=== PATIENT | female | born 2000 ===

== ENCOUNTER 2020-03-29 10:25 | Inpatient (IN) | payer BC ==
[~2020-03-29 10:25] MED LIST: Citric Acid/Sodium Citrate Solution 30 ML Cup PO ONE; Oxytocin/0.9 % Sodium Chloride 30 UNIT/500 ML BAG IV SCH; Sodium Chloride 0.9% 10 ML SDV IV PRN; Sodium Chloride 0.9% 10 ML Syringe FLUSH PRN; Sodium Chloride 0.9% 2.5 ML Syringe FLUSH PRN; ceFAZolin 2 GM in Premix Bag 1 BAG IV ONE
[2020-03-29] MEDS ORDERED: Oxytocin 10 Units/1 ML SDV ONE (10:31)
[2020-03-29] MEDS ORDERED: Ondansetron 4 MG/2 ML SDV ONE (10:31)
[2020-03-29] MEDS ORDERED: ceFAZolin/Dextrose,Iso-Osmotic 2 GM/50 ML Duplex Bag IV ONE (10:37)
[2020-03-29] MEDS: Lactated Ringers 1,000 ML IV SCH ×2 (10:48→12:21)
--- NOTE | 2020-03-29 11:06 | PCM.PREANE ---
Preanesthetic Assessment - Anesthesia/Transfusion/Family Hx Anesthesia History: Prior Anesthesia Without Reaction Family History of Anesthesia Reaction: No Transfusion History: No Prior Transfusion(s) - Review of Systems General: No Symptoms Pulmonary: No Symptoms Cardiovascular: No Symptoms Gastrointestinal: No Symptoms Neurological: No Symptoms Other: Reports: None - Physical Assessment NPO Status Date: 03/29/20 NPO Status Time: 08:30 (cl only) Height: 5 ft 8 in Weight: 83.915 kg ASA Class: 2 Mental Status: Alert & Oriented x3 Airway Class: Mallampati = 2 Dentition: Reports: Normal Dentition ROM/Head Extension: Full Lungs: Clear to Auscultation, Normal Respiratory Effort Cardiovascular: Regular Rate, Regular Rhythm - Lab Values: Laboratory Last Values WBC 7.18 K/uL (4.0-11.0) 03/28/20 09:23 RBC 4.29 M/uL (4.30-5.90) L 03/28/20 09:23 Hgb 11.4 g/dL (12.0-16.0) L 03/28/20 09:23 Hct 35.6 % (36.0-46.0) L 03/28/20 09:23 MCV 83.0 fL (80.0-98.0) 03/28/20 09:23 MCH 26.6 pg (27.0-32.0) L 03/28/20 09:23 MCHC 32.0 g/dL (31.0-37.0) 03/28/20 09:23 RDW Std Deviation 42.0 fl (28.0-62.0) 03/28/20 09:23 RDW Coeff of Jackelin 14 % (11.0-15.0) 03/28/20 09:23 Plt Count 210 K/uL (150-400) 03/28/20 09:23 MPV 10.80 fL (7.40-12.00) 03/28/20 09:23 Nucleated RBC % 0.0 /100WBC 03/28/20 09:23 Nucleated RBCs # 0 K/uL 03/28/20 09:23 Blood Type O POSITIVE 03/28/20 09:23 Antibody Screen NEGATIVE 03/28/20 09:23 - Allergies Allergies/Adverse Reactions: Allergies Allergy/AdvReac Type Severity Reaction Status Date / Time No Known Allergies Allergy Verified 03/27/20 12:53 - Blood Blood Available: No - Anesthesia Plan Pre-Op Medication Ordered: None - Acknowledgements Anesthesia Type Planned: Spinal Pt an Appropriate Candidate for the Planned Anesthesia: Yes Alternatives and Risks of Anesthesia Discussed w Pt/Guardian: Yes Pt/Guardian Understands and Agrees with Anesthesia Plan: Yes PreAnesthesia Questionnaire HEENT History: Reports: None Cardiovascular History: Reports: None Respiratory History: Reports: None Gastrointestinal History: Reports: Other (See Below) Other Gastrointestinal History: heartburn with Genitourinary History: Reports: None 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: Musculoskeletal History: Reports: None Neurological History: Reports: None Psychiatric History: Reports: None Endocrine/Metabolic History: Reports: None Hematologic History: Reports: None Immunologic History: Reports: None Oncologic (Cancer) History: Reports: None Dermatologic History: Reports: None - Past Surgical History Head Surgeries/Procedures: Reports: None HEENT Surgical History: Reports: None Cardiovascular Surgical History: Reports: None Respiratory Surgical History: Reports: None GI Surgical History: Reports: None Female Surgical History: Reports: Section Endocrine Surgical History: Reports: None Neurological Surgical History: Reports: None Musculoskeletal Surgical History: Reports: None Oncologic Surgical History: Reports: None Dermatological Surgical History: Reports: None - SUBSTANCE USE Smoking Status *Q: Never Smoker Recreational Drug Use History: No - HOME MEDS Home Medications: Home Meds Acetaminophen [Tylenol] 2 tab PO ASDIRECTED PRN 03/27/20 [History] - CURRENT (IN HOUSE) MEDS Current Meds: Current Medications Oxytocin/Sodium Chloride (Oxytocin 30 Unit/500 Ml-Ns) 30 unit in 500 mls @ 250 mls/hr IV TITRATE ILEANA Lactated Ringer's (Ringers, Lactated) 1,000 mls @ 500 mls/hr IV BOLUS ILEANA Sodium Chloride (Saline Flush) 10 ml FLUSH ASDIRECTED PRN PRN Reason: Keep Vein Open Sodium Chloride (Saline Flush) 2.5 ml FLUSH ASDIRECTED PRN PRN Reason: Keep Vein Open Sodium Chloride (Normal Saline) 10 ml IV ASDIRECTED PRN PRN Reason: IV Use Discontinued Medications Cefazolin Sodium/Dextrose (Ancef) Confirm Administered Dose 2 gm IV .STK-MED ONE Stop: 03/29/20 10:38 Citric Acid/Sodium Citrate (Bicitra Solution) 30 ml PO ONETIME ONE Stop: 03/28/20 08:35 Cefazolin Sodium/Dextrose 2 gm (/ Premix) 50 mls @ 100 mls/hr IV ONETIME ONE Stop: 03/28/20 09:03 Ondansetron HCl (Zofran) Confirm Administered Dose 4 mg .ROUTE .STK-MED ONE Stop: 03/29/20 10:32 Oxytocin (Pitocin) Confirm Administered Dose 20 unit .ROUTE .STK-MED ONE Stop: 03/29/20 10:32
[2020-03-29] MEDS ORDERED: Morphine PF 10 MG/10 ML SDV ONE (12:43)
--- NOTE | 2020-03-29 12:46 | PCM.LDHP ---
L&D History of Present Illness - General Date of Service: 03/29/20 Admit Problem/Dx: Patient Status Order with Admit Dx/Problem 03/28/20 08:34 Patient Status [ADT] Routine Admission Diagnosis/Problem Admission Diagnosis/Problem 03/29/20 12:41 Ileana is a 20 yo at 39.4 weeks (SANDRO 04/01/2021) that presents today for repeat section due to history of C/S due to failure to progress. O pos, RI, GBS neg. No other significant medical history. Patient has no complaints, comments, or concerns today. Pre-operative clearance completed 1 day ago in clinic with Dr. Ahumada. Operative and blood product consents signed and in chart. NKDA. Source of Information: Patient History Limitations: Reports: No Limitations - Related Data Allergies/Adverse Reactions: Allergies Allergy/AdvReac Type Severity Reaction Status Date / Time No Known Allergies Allergy Verified 03/27/20 12:53 Home Medications: Home Meds Acetaminophen [Tylenol] 2 tab PO ASDIRECTED PRN 03/27/20 [History] Past Medical History HEENT History: Reports: None Cardiovascular History: Reports: None Respiratory History: Reports: None Gastrointestinal History: Reports: Other (See Below) Other Gastrointestinal History: heartburn with Genitourinary History: Reports: None CONSULTANT INTERN History: Reports: , Other (See Below) (History of primary C/S due to FTP) : 2 Para: 1 LMP (Approximate): Musculoskeletal History: Reports: None Neurological History: Reports: None Psychiatric History: Reports: None Endocrine/Metabolic History: Reports: None Hematologic History: Reports: None Immunologic History: Reports: None Oncologic (Cancer) History: Reports: None Dermatologic History: Reports: None - Past Surgical History Head Surgeries/Procedures: Reports: None HEENT Surgical History: Reports: None Cardiovascular Surgical History: Reports: None Respiratory Surgical History: Reports: None GI Surgical History: Reports: None Female Surgical History: Reports: Section Endocrine Surgical History: Reports: None Neurological Surgical History: Reports: None Musculoskeletal Surgical History: Reports: None Oncologic Surgical History: Reports: None Dermatological Surgical History: Reports: None Social & Family History - Family History Family Medical History: Noncontributory - Tobacco Use Smoking Status *Q: Never Smoker Second Hand Smoke Exposure: No - Alcohol Use Alcohol Use History: No - Recreational Drug Use Recreational Drug Use: No Drug Use in Last 12 Months: No H&P Review of Systems - Review of Systems: Review Of Systems: Comprehensive ROS is negative, except as noted in HPI. General: Reports: No Symptoms HEENT: Reports: No Symptoms Pulmonary: Reports: No Symptoms Cardiovascular: Reports: No Symptoms Gastrointestinal: Reports: No Symptoms Genitourinary: Reports: No Symptoms Musculoskeletal: Reports: No Symptoms Skin: Reports: No Symptoms Psychiatric: Reports: No Symptoms Neurological: Reports: No Symptoms Hematologic/Lymphatic: Reports: No Symptoms Immunologic: Reports: No Symptoms L&D Exam - Exam Exam: See Below - Vital Signs Vital Signs: BP 130/77, HR 84, T 97.0 Weight: 185 lb - OB Specific Fundal Height In cm: 39 Contraction Duration (sec): 40-60 Contraction Frequency (min): 2-2.5 Contraction Intensity: Mild Movement: Active Heart Tones: Present Heart Tones per Min: 135 Heart Rate (FHR) Variability: Moderate (6-25 bmp) Presentation: Vertex - Exam General: Alert, Oriented, Cooperative HEENT: PERRLA, Conjunctiva Clear, EACs Clear, EOMI, Hearing Intact, Mucosa Moist & Robinette, Nares Patent, Normal Nasal Septum, Posterior Pharynx Clear, TMs Clear Neck: Supple, Trachea Midline Lungs: Clear to Auscultation, Normal Respiratory Effort Cardiovascular: Regular Rate, Regular Rhythm GI/Abdominal Exam: Normal Bowel Sounds, Soft, Non-Tender, No Organomegaly, No Distention Rectal Exam: Deferred Genitourinary: Normal external exam, Normal bimanual exam, Normal speculum exam Back Exam: Normal Inspection, Full Range of Motion Extremities: Normal Inspection, Normal Range of Motion, Non-Tender, No Pedal Edema, Normal Capillary Refill Skin: Warm, Dry, Intact Neurological: Cranial Nerves Intact, Reflexes Equal Bilateral Psychiatric: Alert, Normal Affect, Normal Mood - Patient Data Lab Results Last 24 hrs: Laboratory Results - last 24 hr 03/28/20 Range/Units 09:23 Blood Type O POSITIVE Antibody Screen NEGATIVE Result Diagrams: 03/28/20 09:23 - Problem List (1) with 39 completed weeks gestation SNOMED Code(s): 96934487 ICD Code: Z3A.39 - 39 WEEKS GESTATION OF Status: Acute Current Visit: Yes Problem List Initiated/Reviewed/Updated: Yes Orders Last 24hrs: Medication Orders Oxytocin/Sodium Chloride (Oxytocin 30 Unit/500 Ml-Ns) 30 unit in 500 mls @ 250 mls/hr IV TITRATE ILEANA Lactated Ringer's (Ringers, Lactated) 1,000 mls @ 500 mls/hr IV BOLUS ILEANA Last Admin: 03/29/20 12:21 Dose: 999 mls/hr Documented by: Infusion: 03/29/20 11:49 Dose: 999 mls/hr Documented by: Admin: 03/29/20 10:48 Dose: 999 mls/hr Documented by: HUMBLE Sodium Chloride (Saline Flush) 10 ml FLUSH ASDIRECTED PRN PRN Reason: Keep Vein Open Sodium Chloride (Saline Flush) 2.5 ml FLUSH ASDIRECTED PRN PRN Reason: Keep Vein Open Sodium Chloride (Normal Saline) 10 ml IV ASDIRECTED PRN PRN Reason: IV Use Assessment/Plan Comment:: Pre-operative clearance completed 1 day ago in clinic with Dr. Ahumada. Operative and blood product consents signed and in chart. NKDA. Continue with planned repeat low transverse section. See new orders.
[2020-03-29] MEDS ORDERED: Nalbuphine 10 MG/1 ML Vial IVPUSH PRN (13:15)
[2020-03-29] MEDS ORDERED: fentaNYL 100 MCG/2 ML SDV IVPUSH PRN (13:15)
[2020-03-29] MEDS ORDERED: Lanolin 100% Cream 7 GM Tube TOP PRN (13:45)
[2020-03-29] MEDS ORDERED: Bisacodyl 10 MG Supp RECTAL PRN (13:45)
[2020-03-29] MEDS ORDERED: Misoprostol 200 MCG Tab RECTAL PRN (13:45)
[2020-03-29] MEDS ORDERED: Lactated Ringers 1,000 ML IV SCH (13:45)
[2020-03-29] MEDS ORDERED: diphenhydrAMINE 50 MG/ML SDV IVPUSH PRN (13:45)
[2020-03-29] MEDS ORDERED: Oxytocin 10 Units/1 ML SDV IM PRN (13:45)
[2020-03-29] MEDS ORDERED: Methylergonovine 0.2 MG/1 ML Amp IM PRN (13:45)
[2020-03-29] MEDS ORDERED: Ondansetron 4 MG/2 ML SDV IVPUSH PRN (13:45)
[2020-03-29] MEDS ORDERED: Tranexamic Acid 1,000 MG in Sodium Chloride 0.9% 100 ML IV PRN (13:45)
[2020-03-29] MEDS ORDERED: Acetaminophen/oxyCODONE 325-5 MG Tab PO PRN ×2 (13:45)
[2020-03-29] MEDS ORDERED: Octyl 2-Cyanoacrylate 1 Tube ONE (13:46)
--- NOTE | 2020-03-29 13:49 | PCM.OPNOTE ---
- General Post-Op/Procedure Note Date of Surgery/Procedure: 03/29/20 Operative Procedure(s): Repeat C/section. Pre Op Diagnosis: IUP30+ previous C/section. Post-Op Diagnosis: Same Anesthesia Technique: Spinal Primary Surgeon: Malick Ahumada Prenatal Genetic Counselor: Danyelle Sanchez EBL in mLs: 700 Complications: None Condition: Good Free Text/Narrative:: Intake & Output 03/28/20 03/29/20 03/29/20 22:59 06:59 14:59 Intake Total 1000 Balance 1000
[2020-03-29] MEDS: Ketorolac 30 MG/ML SDV IVPUSH SCH ×2 (14:27→20:22)
--- NOTE | 2020-03-29 14:58 | PCM.POSTAN ---
POST ANESTHESIA ASSESSMENT - MENTAL STATUS Mental Status: Alert - RESPIRATORY Respiratory Status: Respiratory Rate WNL - CARDIOVASCULAR CV Status: Pulse Rate WNL - GASTROINTESTINAL GI Status: No Symptoms - PAIN Pain Score: 0 (Spinal regressing well.) - POST OP HYDRATION Hydration Status: Adequate & Stable - OBSERVATIONS Free Text/Narrative:: Progressing well. Ready for discharge for PACU.
--- NOTE | 2020-03-29 16:03 | OR ---
SURGEON: Malick Ahumada MD DATE OF PROCEDURE: 03/29/2020 PREOPERATIVE DIAGNOSIS: Intrauterine at 39 weeks plus 3, previous section. POSTOPERATIVE DIAGNOSIS: Intrauterine at 39 weeks plus 3, previous section. OPERATION PERFORMED: Repeat low transverse section. PRIMARY SURGEON: Malick Ahumada MD DRY LUMBER GRADER: Danyelle Sanchez CNM ANESTHESIA: Spinal. ESTIMATED BLOOD LOSS: 700 mL. COMPLICATIONS: None. FINDINGS: Male fetus. score reported to be 8 and 9. Normal uterus, tubes, and ovaries. INDICATIONS FOR SURGERY: The patient had a previous section. She is admitted for elective repeat section. DESCRIPTION OF PROCEDURE: The patient was brought to the OR, properly identified. After adequate level of spinal anesthesia with a Martinez catheter in the bladder, the patient was prepped and draped in sterile fashion as usual. Low transverse Pfannenstiel skin incision was done. Xiao's fascia and rectus fascia were opened in the direction of the incision. The 2 recti muscles were , and peritoneal cavity was entered. Bladder flap was raised in the usual manner, and low transverse uterine incision was done and extended manually with hand. Fetus was delivered, was in the vertex position without any problem and cried immediately. After clamping the cord, was handed to the resuscitating team. Placenta delivered spontaneous, complete, and intact, and repair of the lower uterine segment was done with 2-0 Vicryl continuous interlocking in 2 layers. Reperitonealization done with 3-0 Vicryl continuous and then the peritoneal cavity evacuated completely from all blood and blood clot and closed with 3-0 Vicryl continuous. The rectus fascia was closed with #1 PDS double strand continuous, Xiao's fascia with 3-0 Vicryl continuous, and the skin closed with Stratafix in a subcuticular fashion. Instrument and sponge count was correct. The patient tolerated the procedure well, went to recovery room in stable general condition. DEB / NEHA /[id number]
[2020-03-29] MEDS: Docusate Sodium 100 MG Cap PO SCH (21:48)
[2020-03-30] MEDS: Ketorolac 30 MG/ML SDV IVPUSH SCH ×3 (01:56→14:26)
--- NOTE | 2020-03-30 07:36 | PCM48HPAN ---
Post Anesthesia Note - EVALUATION WITHIN 48HRS OF ANESTHETIC Vital Signs in Normal Range: Yes Patient Participated in Evaluation: Yes Respiratory Function Stable: Yes Airway Patent: Yes Cardiovascular Function Stable: Yes Hydration Status Stable: Yes Pain Control Satisfactory: Yes Nausea and Vomiting Control Satisfactory: Yes Mental Status Recovered: Yes Vital Signs: Last Vital Signs Temp 36.2 C 03/30/20 04:00 Pulse 79 03/30/20 07:03 Resp 15 03/30/20 07:03 BP 108/63 03/30/20 04:00 Pulse Ox 99 03/30/20 07:03 - COMMENTS/OBSERVATIONS Free Text/Narrative:: Doing well. No problems noted at present.
[2020-03-30] MEDS: Docusate Sodium 100 MG Cap PO SCH ×3 (07:45→23:16)
--- NOTE | 2020-03-30 08:52 | PCM.SURGPN ---
- General Info Date of Service: 03/30/20 POD#: 1 Functional Status: Reports: Pain Controlled - Review of Systems General: Reports: No Symptoms HEENT: Reports: No Symptoms Pulmonary: Reports: No Symptoms Cardiovascular: Reports: No Symptoms Gastrointestinal: Reports: No Symptoms Genitourinary: Reports: No Symptoms Musculoskeletal: Reports: No Symptoms Skin: Reports: No Symptoms Neurological: Reports: No Symptoms Psychiatric: Reports: No Symptoms - Patient Data Vitals - Most Recent: Last Vital Signs Temp 36.2 C 03/30/20 04:00 Pulse 79 03/30/20 07:03 Resp 15 03/30/20 07:03 BP 108/63 03/30/20 04:00 Pulse Ox 99 03/30/20 07:03 Weight - Most Recent: 83.915 kg I&O - Last 24 Hours: Intake & Output 03/29/20 03/30/20 03/30/20 22:59 06:59 14:59 Intake Total 500 950 Output Total 1440 800 Balance -940 150 Lab Results Last 24 Hrs: Laboratory Results - last 24 hr 03/30/20 Range/Units 05:48 Hgb 10.2 L (12.0-16.0) g/dL Hct 31.8 L (36.0-46.0) % Med Orders - Current: Current Medications Bisacodyl (Dulcolax) 10 mg RECTAL ONETIME PRN PRN Reason: Constipation Diphenhydramine HCl (Benadryl) 25 mg IVPUSH Q6H PRN PRN Reason: Itching or Nausea Last Admin: 03/29/20 20:28 Dose: 25 mg Documented by: Docusate Sodium (Colace) 100 mg PO BID ILEANA Last Admin: 03/30/20 07:45 Dose: 100 mg Documented by: Emollient Ointment (Lansinoh Hpa) 0 gm TOP ASDIRECTED PRN PRN Reason: Sore Nipples Fentanyl (Sublimaze) 50 mcg IVPUSH Q5M PRN PRN Reason: Pain (severe 7-10) Stop: 03/30/20 13:16 Oxytocin/Sodium Chloride (Oxytocin 30 Unit/500 Ml-Ns) 30 unit in 500 mls @ 250 mls/hr IV TITRATE ILEANA Lactated Ringer's (Ringers, Lactated) 1,000 mls @ 500 mls/hr IV BOLUS ILEANA Last Admin: 03/29/20 12:21 Dose: 999 mls/hr Documented by: Lactated Ringer's (Ringers, Lactated) 1,000 mls @ 125 mls/hr IV ASDIRECTED [facility] Last Admin: 03/29/20 16:53 Dose: 125 mls/hr Documented by: Tranexamic Acid 1,000 mg/ (Sodium Chloride) 110 mls @ 660 mls/hr IV ONETIME PRN PRN Reason: Bleeding Ibuprofen (Motrin) 800 mg PO Q8H PRN PRN Reason: mild pain or fever Ketorolac Tromethamine (Toradol) 30 mg IVPUSH Q6H [facility] Stop: 03/30/20 13:46 Last Admin: 03/30/20 07:44 Dose: 30 mg Documented by: Methylergonovine Maleate (Methergine) 0.2 mg IM ONETIME PRN PRN Reason: Excessive Vaginal Bleeding Misoprostol (Cytotec) 1,000 mcg RECTAL ONETIME PRN PRN Reason: excessive bleeding Nalbuphine HCl (Nubain) 2.5 mg IVPUSH Q3H PRN PRN Reason: Pruritis Stop: 03/30/20 13:16 Last Admin: 03/29/20 18:07 Dose: 2.5 mg Documented by: Ondansetron HCl (Zofran) 4 mg IVPUSH Q4H PRN PRN Reason: Nausea/Vomiting Last Admin: 03/29/20 17:25 Dose: 4 mg Documented by: Oxycodone/Acetaminophen (Percocet 325-5 Mg) 1 tab PO ONETIME PRN PRN Reason: Pain (moderate 4-6) Oxycodone/Acetaminophen (Percocet 325-5 Mg) 1 tab PO Q4H PRN PRN Reason: Pain (moderate 4-6) Oxycodone/Acetaminophen (Percocet 325-5 Mg) 2 tab PO Q4H PRN PRN Reason: Pain (moderate 4-6) Oxytocin (Pitocin) 10 unit IM ASDIRECTED PRN PRN Reason: Excessive Vaginal Bleeding Sodium Chloride (Saline Flush) 10 ml FLUSH ASDIRECTED PRN PRN Reason: Keep Vein Open Sodium Chloride (Saline Flush) 2.5 ml FLUSH ASDIRECTED PRN PRN Reason: Keep Vein Open Sodium Chloride (Normal Saline) 10 ml IV ASDIRECTED PRN PRN Reason: IV Use Discontinued Medications Cefazolin Sodium/Dextrose (Ancef) Confirm Administered Dose 2 gm IV .STK-MED ONE Stop: 03/29/20 10:38 Citric Acid/Sodium Citrate (Bicitra Solution) 30 ml PO ONETIME ONE Stop: 03/28/20 08:35 Last Admin: 03/29/20 21:23 Dose: Not Given Documented by: Cefazolin Sodium/Dextrose 2 gm (/ Premix) 50 mls @ 100 mls/hr IV ONETIME ONE Stop: 03/28/20 09:03 Last Admin: 03/29/20 21:23 Dose: Not Given Documented by: Morphine Sulfate (Duramorph Pf) Confirm Administered Dose 10 mg .ROUTE .STK-MED ONE Stop: 03/29/20 12:44 Octyl Cyanoacrylate (Dermabond Advance) Confirm Administered Dose 1 applic .ROUTE .STK-MED ONE Stop: 03/29/20 13:47 Last Admin: 03/29/20 21:24 Dose: Not Given Documented by: Ondansetron HCl (Zofran) Confirm Administered Dose 4 mg .ROUTE .STK-MED ONE Stop: 03/29/20 10:32 Oxytocin (Pitocin) Confirm Administered Dose 20 unit .ROUTE .STK-MED ONE Stop: 03/29/20 10:32 - Exam Wound/Incisions: Healing Well General: Alert, Oriented HEENT: Pupils Equal Neck: Supple Lungs: Clear to Auscultation, Normal Respiratory Effort Cardiovascular: Regular Rate, Regular Rhythm GI/Abdominal Exam: Normal Bowel Sounds, Soft, Non-Tender, No Organomegaly, No Distention, No Abnormal Bruit, No Mass, Pelvis Stable Extremities: Normal Inspection, Normal Range of Motion, Non-Tender, No Pedal Edema, Normal Capillary Refill Skin: Warm, Dry, Intact Neurological: No New Focal Deficit Psy/Mental Status: Alert, Normal Affect, Normal Mood Sepsis Event Note - Evaluation Sepsis Screening Result: No Definite Risk - Focused Exam Vital Signs: Vital Signs Temp Pulse Resp BP Pulse Ox 03/30/20 07:03 79 15 99 03/30/20 06:00 88 16 98 03/30/20 05:15 86 15 98 03/30/20 04:00 36.2 C 80 14 108/63 98 03/30/20 03:00 76 14 94 L 03/30/20 02:00 71 15 95 03/30/20 00:56 90 16 98 03/30/20 00:00 71 15 97 03/29/20 23:45 36.7 C 73 16 102/59 L 98 03/29/20 21:49 88 16 95 03/29/20 21:00 78 16 97 Date Exam was Performed: 03/30/20 Time Exam was Performed: 08:51 - Problem List Review Problem List Initiated/Reviewed/Updated: Yes - My Orders Last 24 Hours: Active Orders 24 hr Category Date Time Status Patient Status [ADT] Routine ADT 03/29/20 13:45 Active Ambulate [RC] PER UNIT ROUTINE Care 03/29/20 13:45 Active Antiembolic Devices [RC] PER UNIT ROUTINE Care 03/29/20 13:46 Active Bradycardia-Neuroaxis [employer] [RC] ROUTINE Care 03/29/20 13:15 Active Communication Order [RC] PER UNIT ROUTINE Care 03/29/20 13:45 Active Communication Order [RC] PER UNIT ROUTINE Care 03/29/20 13:45 Active Communication Order [RC] Per Unit Routine Care 03/29/20 13:45 Active Hypertension-Neuroaxis [employer] [RC] ROUTINE Care 03/29/20 13:15 Active Hypotension-Neuroaxis [employer] [RC] ROUTINE Care 03/29/20 13:15 Active May Shower [RC] ASDIRECTED Care 03/29/20 13:45 Active Oxygen Therapy [RC] PER UNIT ROUTINE Care 03/29/20 13:15 Active RT Incentive Spirometry [RC] Q2HWA Care 03/29/20 13:45 Active Vital Signs [RC] Q1H Care 03/29/20 13:15 Active Regular Diet [DIET] Diet 03/30/20 Breakfast Active Acetaminophen/oxyCODONE [Percocet 325-5 MG] Med 03/29/20 13:15 Active 1 tab PO ONETIME PRN Acetaminophen/oxyCODONE [Percocet 325-5 MG] Med 03/29/20 13:45 Active 1 tab PO Q4H PRN Acetaminophen/oxyCODONE [Percocet 325-5 MG] Med 03/29/20 13:45 Active 2 tab PO Q4H PRN Docusate Sodium [Colace] Med 03/29/20 21:00 Active 100 mg PO BID Ibuprofen [Motrin] Med 03/29/20 13:45 Active 800 mg PO Q8H PRN Ketorolac [Toradol] Med 03/29/20 13:45 Active 30 mg IVPUSH Q6H Lactated Ringers [Ringers, Lactated] 1,000 ml Med 03/29/20 13:45 Active IV ASDIRECTED Lanolin [Lansinoh HPA] Med 03/29/20 13:45 Active See Dose Instructions TOP ASDIRECTED PRN Methylergonovine [Methergine] Med 03/29/20 13:45 Active 0.2 mg IM ONETIME PRN Nalbuphine [Nubain] Med 03/29/20 13:15 Active 2.5 mg IVPUSH Q3H PRN Ondansetron [Zofran] Med 03/29/20 13:45 Active 4 mg IVPUSH Q4H PRN Oxytocin [Pitocin] Med 03/29/20 13:45 Active 10 unit IM ASDIRECTED PRN Tranexamic Acid [Cyklokapron] 1,000 mg Med 03/29/20 13:45 Active Sodium Chloride 0.9% [Normal Saline] 100 ml IV ONETIME bisacodyL [Dulcolax] Med 03/29/20 13:45 Active 10 mg RECTAL ONETIME PRN diphenhydrAMINE [Benadryl] Med 03/29/20 13:45 Active 25 mg IVPUSH Q6H PRN fentaNYL [Sublimaze] Med 03/29/20 13:15 Active 50 mcg IVPUSH Q5M PRN miSOPROStoL [Cytotec] Med 03/29/20 13:45 Active 1,000 mcg RECTAL ONETIME PRN AN Neuroaxis [employer] Precaution Reflex [OM.PC] PER Oth 03/29/20 13:15 Ordered UNIT ROUTINE AN Neuroaxis [employer] Precaution Reflex [OM.PC] PER Ot 03/30/20 13:15 Ordered UNIT ROUTINE Assess Lochia [WOMSER] Per Unit Routine Ot 03/29/20 13:45 Ordered Assess Uterine Involution [WOMSER] Per Unit Routine Oth 03/29/20 13:45 Ordered Breast Pump [WOMSER] Per Unit Routine Oth 03/29/20 13:45 Ordered Peripheral IV Discontinue [OM.PC] Routine Oth 03/29/20 13:45 Ordered Sequential Compression Device [OM.PC] Per Unit Routine Oth 03/29/20 13:45 Ordered Medication Orders Bisacodyl (Dulcolax) 10 mg RECTAL ONETIME PRN PRN Reason: Constipation Diphenhydramine HCl (Benadryl) 25 mg IVPUSH Q6H PRN PRN Reason: Itching or Nausea Last Admin: 03/29/20 20:28 Dose: 25 mg Documented by: CHRISTIANO Docusate Sodium (Colace) 100 mg PO BID [facility] Last Admin: 03/30/20 07:45 Dose: 100 mg Documented by: Admin: 03/29/20 21:48 Dose: 100 mg Documented by: CHRISTIANO Emollient Ointment (Lansinoh Hpa) 0 gm TOP ASDIRECTED PRN PRN Reason: Sore Nipples Fentanyl (Sublimaze) 50 mcg IVPUSH Q5M PRN PRN Reason: Pain (severe 7-10) Stop: 03/30/20 13:16 Oxytocin/Sodium Chloride (Oxytocin 30 Unit/500 Ml-Ns) 30 unit in 500 mls @ 250 mls/hr IV TITRATE [facility] Lactated Ringer's (Ringers, Lactated) 1,000 mls @ 500 mls/hr IV BOLUS [facility] Last Admin: 03/29/20 12:21 Dose: 999 mls/hr Documented by: Infusion: 03/29/20 11:49 Dose: 999 mls/hr Documented by: Admin: 03/29/20 10:48 Dose: 999 mls/hr Documented by: HUMBLE Lactated Ringer's (Ringers, Lactated) 1,000 mls @ 125 mls/hr IV ASDIRECTED [facility] Last Admin: 03/29/20 16:53 Dose: 125 mls/hr Documented by: HUMBLE Tranexamic Acid 1,000 mg/ (Sodium Chloride) 110 mls @ 660 mls/hr IV ONETIME PRN PRN Reason: Bleeding Ibuprofen (Motrin) 800 mg PO Q8H PRN PRN Reason: mild pain or fever Ketorolac Tromethamine (Toradol) 30 mg IVPUSH Q6H [facility] Stop: 03/30/20 13:46 Last Admin: 03/30/20 07:44 Dose: 30 mg Documented by: Admin: 03/30/20 01:56 Dose: 30 mg Documented by: Admin: 03/29/20 20:22 Dose: 30 mg Documented by: Admin: 03/29/20 14:27 Dose: 30 mg Documented by: HUMBLE Methylergonovine Maleate (Methergine) 0.2 mg IM ONETIME PRN PRN Reason: Excessive Vaginal Bleeding Misoprostol (Cytotec) 1,000 mcg RECTAL ONETIME PRN PRN Reason: excessive bleeding Nalbuphine HCl (Nubain) 2.5 mg IVPUSH Q3H PRN PRN Reason: Pruritis Stop: 03/30/20 13:16 Last Admin: 03/29/20 18:07 Dose: 2.5 mg Documented by: HUMBLE Ondansetron HCl (Zofran) 4 mg IVPUSH Q4H PRN PRN Reason: Nausea/Vomiting Last Admin: 03/29/20 17:25 Dose: 4 mg Documented by: HUMBLE Oxycodone/Acetaminophen (Percocet 325-5 Mg) 1 tab PO ONETIME PRN PRN Reason: Pain (moderate 4-6) Oxycodone/Acetaminophen (Percocet 325-5 Mg) 1 tab PO Q4H PRN PRN Reason: Pain (moderate 4-6) Oxycodone/Acetaminophen (Percocet 325-5 Mg) 2 tab PO Q4H PRN PRN Reason: Pain (moderate 4-6) Oxytocin (Pitocin) 10 unit IM ASDIRECTED PRN PRN Reason: Excessive Vaginal Bleeding Sodium Chloride (Saline Flush) 10 ml FLUSH ASDIRECTED PRN PRN Reason: Keep Vein Open Sodium Chloride (Saline Flush) 2.5 ml FLUSH ASDIRECTED PRN PRN Reason: Keep Vein Open Sodium Chloride (Normal Saline) 10 ml IV ASDIRECTED PRN PRN Reason: IV Use - Assessment Assessment (Free Text/Narrative):: S/P c/Section doing well - Plan Plan (Free Text/Narrative):: Sens home in am. Regular PP care.
[2020-03-30] MEDS: Ibuprofen 800 MG Tab PO PRN ×2 (14:25→23:16)
[2020-03-31] MEDS: Docusate Sodium 100 MG Cap PO SCH (09:23)
[2020-03-31] MEDS: Ibuprofen 800 MG Tab PO PRN (09:23)
[2020-03-31] MEDS: Acetaminophen/oxyCODONE 325-5 MG Tab PO PRN ×2 (09:24→14:12)
--- NOTE | 2020-03-31 09:30 | PCM.DCSUM1 ---
Discharge Summary - Hospital Course Free Text/Narrative:: Discharge home with infant. Follow up in 1 week for postop check and 6 weeks for visit. Diagnosis: Stroke: No Modified [place] Scale: No Symptoms at All Modified [place] Scale Score: 0 - Discharge Data Discharge Date: 03/31/20 Discharge Disposition: Home, Self-Care 01 Condition: Good - Referral to Home Health Primary Care Physician: Malick Ahumada MD - Patient Summary/Data Operative Procedure(s) Performed: Repeat C/section. - Patient Instructions Diet: Usual Diet as Tolerated Activity: As Tolerated, No Strenuous Activities, Rest and Relax Today Driving: Do Not Drive Showering/Bathing: May Shower Wound/Incision Care: Keep Operative Site/Wound Site Clean and Dry Notify Provider of: Fever, Increased Pain, Swelling and Redness, Drainage, Nausea and/or Vomiting Other/Special Instructions: Discharge home with infant. Follow up in 1 week for postop check and 6 weeks for visit. - Discharge Plan *PRESCRIPTION DRUG MONITORING PROGRAM REVIEWED*: Not Applicable *COPY OF PRESCRIPTION DRUG MONITORING REPORT IN PATIENT HARRY: Not Applicable Prescriptions/Med Rec: Docusate Sodium [Colace] 100 mg PO BID #90 cap Acetaminophen/oxyCODONE [Percocet 325-5 MG] 1 - 2 tab PO ONETIME PRN #30 tablet PRN Reason: Pain (Moderate 4-6) Home Medications: Home Meds Acetaminophen [Tylenol] 2 tab PO ASDIRECTED PRN 03/27/20 [History] Acetaminophen/oxyCODONE [Percocet 325-5 MG] 1 - 2 tab PO ONETIME PRN #30 tablet 03/31/20 [Rx] Docusate Sodium [Colace] 100 mg PO BID #90 cap 03/31/20 [Rx] Oxygen Therapy Mode: Room Air Referrals: [facility] [Outside] Caitlin Griffith, CEM, [facility] [facility] [Mid-] - 05/10/20 2:00 pm Malick Ahumada MD [Primary Care Provider] - 04/04/20 3:00 pm - Discharge Summary/Plan Comment DC Time >30 min.: Yes - General Info Date of Service: 03/31/20 Admission Dx/Problem (Free Text: Patient Status Order with Admit Dx/Problem 03/28/20 08:34 Patient Status [ADT] Routine Admission Diagnosis/Problem Admission Diagnosis/Problem 03/29/20 12:41 Ileana is a 20 yo at 39.4 weeks (SANDRO 04/01/2021) that presents today for repeat section due to history of C/S due to failure to progress. O pos, RI, GBS neg. No other significant medical history. Patient has no complaints, comments, or concerns today. Pre-operative clearance completed 1 day ago in clinic with Dr. Ahumada. Operative and blood product consents signed and in chart. NKDA. Functional Status: Reports: Pain Controlled, Tolerating Diet, Ambulating, Urinating - Review of Systems General: Reports: No Symptoms HEENT: Reports: No Symptoms Pulmonary: Reports: No Symptoms Cardiovascular: Reports: No Symptoms Gastrointestinal: Reports: No Symptoms Genitourinary: Reports: No Symptoms Musculoskeletal: Reports: No Symptoms Skin: Reports: No Symptoms Neurological: Reports: No Symptoms Psychiatric: Reports: No Symptoms - Patient Data Vitals - Most Recent: Last Vital Signs Temp 37.0 C 03/31/20 07:54 Pulse 87 03/31/20 07:54 Resp 16 03/31/20 07:54 BP 118/83 03/31/20 07:54 Pulse Ox 98 03/31/20 07:54 Weight - Most Recent: 83.915 kg Lab Results - Last 24 hrs: Laboratory Results - last 24 hr 03/28/20 Range/Units 09:23 RPR Non-Reac (Non-Reac) Med Orders - Current: Current Medications Bisacodyl (Dulcolax) 10 mg RECTAL ONETIME PRN PRN Reason: Constipation Diphenhydramine HCl (Benadryl) 25 mg IVPUSH Q6H PRN PRN Reason: Itching or Nausea Last Admin: 03/29/20 20:28 Dose: 25 mg Documented by: Docusate Sodium (Colace) 100 mg PO BID ILEANA Last Admin: 03/31/20 09:23 Dose: 100 mg Documented by: Emollient Ointment (Lansinoh Hpa) 0 gm TOP ASDIRECTED PRN PRN Reason: Sore Nipples Oxytocin/Sodium Chloride (Oxytocin 30 Unit/500 Ml-Ns) 30 unit in 500 mls @ 250 mls/hr IV TITRATE ILEANA Lactated Ringer's (Ringers, Lactated) 1,000 mls @ 500 mls/hr IV BOLUS ILEANA Last Admin: 03/29/20 12:21 Dose: 999 mls/hr Documented by: Lactated Ringer's (Ringers, Lactated) 1,000 mls @ 125 mls/hr IV ASDIRECTED ILEANA Last Admin: 03/29/20 16:53 Dose: 125 mls/hr Documented by: Tranexamic Acid 1,000 mg/ (Sodium Chloride) 110 mls @ 660 mls/hr IV ONETIME PRN PRN Reason: Bleeding Ibuprofen (Motrin) 800 mg PO Q8H PRN PRN Reason: mild pain or fever Last Admin: 03/31/20 09:23 Dose: 800 mg Documented by: Methylergonovine Maleate (Methergine) 0.2 mg IM ONETIME PRN PRN Reason: Excessive Vaginal Bleeding Misoprostol (Cytotec) 1,000 mcg RECTAL ONETIME PRN PRN Reason: excessive bleeding Ondansetron HCl (Zofran) 4 mg IVPUSH Q4H PRN PRN Reason: Nausea/Vomiting Last Admin: 03/29/20 17:25 Dose: 4 mg Documented by: Oxycodone/Acetaminophen (Percocet 325-5 Mg) 1 tab PO ONETIME PRN PRN Reason: Pain (moderate 4-6) Last Admin: 03/31/20 09:24 Dose: 1 tab Documented by: Oxycodone/Acetaminophen (Percocet 325-5 Mg) 1 tab PO Q4H PRN PRN Reason: Pain (moderate 4-6) Last Admin: 03/30/20 19:38 Dose: 1 tab Documented by: Oxycodone/Acetaminophen (Percocet 325-5 Mg) 2 tab PO Q4H PRN PRN Reason: Pain (moderate 4-6) Oxytocin (Pitocin) 10 unit IM ASDIRECTED PRN PRN Reason: Excessive Vaginal Bleeding Sodium Chloride (Saline Flush) 10 ml FLUSH ASDIRECTED PRN PRN Reason: Keep Vein Open Sodium Chloride (Saline Flush) 2.5 ml FLUSH ASDIRECTED PRN PRN Reason: Keep Vein Open Sodium Chloride (Normal Saline) 10 ml IV ASDIRECTED PRN PRN Reason: IV Use Discontinued Medications Cefazolin Sodium/Dextrose (Ancef) Confirm Administered Dose 2 gm IV .STK-MED ONE Stop: 03/29/20 10:38 Citric Acid/Sodium Citrate (Bicitra Solution) 30 ml PO ONETIME ONE Stop: 03/28/20 08:35 Last Admin: 03/29/20 21:23 Dose: Not Given Documented by: Fentanyl (Sublimaze) 50 mcg IVPUSH Q5M PRN PRN Reason: Pain (severe 7-10) Stop: 03/30/20 13:16 Cefazolin Sodium/Dextrose 2 gm (/ Premix) 50 mls @ 100 mls/hr IV ONETIME ONE Stop: 03/28/20 09:03 Last Admin: 03/29/20 21:23 Dose: Not Given Documented by: Ketorolac Tromethamine (Toradol) 30 mg IVPUSH Q6H ILEANA Stop: 03/30/20 13:46 Last Admin: 03/30/20 14:26 Dose: Not Given Documented by: Morphine Sulfate (Duramorph Pf) Confirm Administered Dose 10 mg .ROUTE .STK-MED ONE Stop: 03/29/20 12:44 Nalbuphine HCl (Nubain) 2.5 mg IVPUSH Q3H PRN PRN Reason: Pruritis Stop: 03/30/20 13:16 Last Admin: 03/29/20 18:07 Dose: 2.5 mg Documented by: Octyl Cyanoacrylate (Dermabond Advance) Confirm Administered Dose 1 applic .ROUTE .STK-MED ONE Stop: 03/29/20 13:47 Last Admin: 03/29/20 21:24 Dose: Not Given Documented by: Ondansetron HCl (Zofran) Confirm Administered Dose 4 mg .ROUTE .STK-MED ONE Stop: 03/29/20 10:32 Oxytocin (Pitocin) Confirm Administered Dose 20 unit .ROUTE .STK-MED ONE Stop: 03/29/20 10:32 - Exam General: Reports: Alert, Oriented, Cooperative, No Acute Distress Lungs: Reports: Clear to Auscultation, Normal Respiratory Effort. Denies: Decreased Breath Sounds Cardiovascular: Reports: Regular Rate, Regular Rhythm. Denies: No Murmurs GI/Abdominal Exam: Normal Bowel Sounds, Soft, No Distention, Pelvis Stable (Female) Exam: Deferred, Vaginal Bleeding Rectal (Female) Exam: Deferred Back Exam: Reports: Normal Inspection, Full Range of Motion Extremities: Normal Inspection, Normal Range of Motion, Non-Tender, No Pedal Edema Skin: Reports: Warm, Dry, Intact Wound/Incisions: Reports: Healing Well Neurological: Reports: No New Focal Deficit, Normal Gait, Normal Speech, Normal Tone, Strength Equal Bilateral Psy/Mental Status: Reports: Alert, Normal Affect, Normal Mood
== END 2020-03-31 14:43 | disposition home or self-care (01) | DRG 540 ==
LOC: MW.OB 10:25
PROVIDERS: ADMIT Obstetrics & Gynecology; ATTEND Obstetrics & Gynecology
PROC: 10D00Z1 Extraction of Products of Conception, Low, Open Approach (ICD-10-PCS; principal; 2020-03-29)
DX: O34.211 Maternal care for low transverse scar from previous cesarean delivery (principal); Z37.0 Single live birth; Z3A.39 39 weeks gestation of pregnancy
CPT/HCPCS: 36415; 51702; 59025; 85014; 85018; 85027; 86592; 86593; 86850; 86900; 86901; A9270-GY; J0690; J1200; J1885; J2270; J2300; J2405; J2590; J7120

== ENCOUNTER 2024-01-20 04:59 | Inpatient (IN) | payer SELFPAY ==
[2024-01-20] MEDS ORDERED: Citric Acid/Sodium Citrate Solution 30 ML Cup PO ONE (05:30)
[2024-01-20] MEDS ORDERED: Oxytocin/0.9 % Sodium Chloride 30 UNIT/500 ML BAG IV SCH ×2 (05:30→09:30)
[2024-01-20] MEDS ORDERED: Sodium Chloride 0.9% 2.5 ML Syringe FLUSH PRN (05:30)
[2024-01-20] MEDS ORDERED: Sodium Chloride 0.9% 20 ML SDV IV PRN (05:30)
[2024-01-20] MEDS ORDERED: Sodium Chloride 0.9% 10 ML Syringe FLUSH PRN (05:30)
[2024-01-20] MEDS: Lactated Ringers 1,000 ML IV SCH (05:50)
[2024-01-20 06:17] LABS: HEMATOCRIT 34.2 % (37.0-47.0); HEMOGLOBIN 11.5 g/dL (12.0-16.0); MEAN CORPUSCULAR HEMOGLOBIN 28.2 pg (28.0-32.0); MEAN CORPUSCULAR HGB CONC 33.6 g/dL (32.0-36.0); MEAN CORPUSCULAR VOLUME 83.8 fL (83.0-99.0); PLATELET COUNT,PLT 186 K/uL (150-400); RED BLOOD CELL COUNT 4.08 M/uL (4.10-5.30); WHITE BLOOD CELL COUNT,WBC 7.83 K/uL (3.9-11.3)
[2024-01-20] MEDS ORDERED: HYDROmorphone 1 MG/ML Syringe IVPUSH PRN (06:18)
[2024-01-20] MEDS ORDERED: Naloxone 0.4 MG/ML SDV IVPUSH PRN (06:18)
[2024-01-20] MEDS ORDERED: fentaNYL 50 MCG/ML SDV IVPUSH PRN (06:18)
[2024-01-20] MEDS ORDERED: Metoclopramide 10 MG/2 ML SDV IVPUSH PRN (06:18)
[2024-01-20] MEDS ORDERED: Ondansetron 4 MG/2 ML SDV IVPUSH PRN ×2 (06:18)
[2024-01-20] MEDS ORDERED: ePHEDrine 50 MG/ML SDV IVPUSH PRN (06:18)
[2024-01-20] MEDS ORDERED: droPERidol 5 MG/2 ML SDV IVPUSH PRN (06:18)
[2024-01-20] MEDS ORDERED: Morphine 2 MG/ML SYRINGE IVPUSH PRN (06:18)
[2024-01-20] MEDS ORDERED: Albuterol 0.083% 2.5 MG/3 ML Neb Soln NEB PRN (06:18)
[2024-01-20] MEDS ORDERED: fentaNYL 100 MCG/2 ML SDV IVPUSH PRN (06:18)
[2024-01-20] MEDS ORDERED: Phenylephrine 1% 10 MG/ML SDV ONE (06:30)
[2024-01-20] MEDS ORDERED: Ondansetron 4 MG/2 ML SDV ONE (06:30)
[2024-01-20] MEDS ORDERED: dexmedeTOMIDine HCl 200 MCG/2 ML SDV ONE (06:30)
[2024-01-20] MEDS ORDERED: Ketorolac 30 MG/ML SDV ONE (06:30)
[2024-01-20] MEDS ORDERED: Dexamethasone 4 MG/ML 5 ML MDV ONE (06:30)
[2024-01-20] MEDS ORDERED: Tranexamic Acid 1,000 MG/10 ML Vial ONE (06:30)
[2024-01-20] MEDS ORDERED: Oxytocin 10 Units/1 ML SDV ONE ×2 (06:30→07:57)
[2024-01-20] MEDS ORDERED: Ropivacaine 0.5% 5 MG/ML 30 ML SDV ONE (06:30)
[2024-01-20] MEDS ORDERED: ePHEDrine 50 MG/ML SDV ONE (06:30)
[2024-01-20] MEDS ORDERED: ceFAZolin 2 GM Vial ONE (06:32)
[2024-01-20] MEDS ORDERED: fentaNYL 100 MCG/2 ML SDV ONE (06:33)
[2024-01-20] MEDS ORDERED: Morphine PF 10 MG/10 ML SDV ONE (06:34)
[2024-01-20] MEDS ORDERED: Water For Injection, Sterile 20 ML ONE (06:37)
[2024-01-20] MEDS ORDERED: Calcium Chloride 10% 1 GM/10 ML Syringe ONE (07:18)
[2024-01-20] MEDS ORDERED: Midazolam 1 MG/ML 2 ML SDV ONE (07:54)
[2024-01-20] MEDS ORDERED: droPERidol 5 MG/2 ML SDV ONE (08:03)
[2024-01-20] MEDS ORDERED: Propofol 200 MG/20 ML SDV ONE (08:07)
[2024-01-20] MEDS ORDERED: Methylergonovine 0.2 MG/1 ML Amp IM PRN (09:23)
[2024-01-20] MEDS ORDERED: Bisacodyl 10 MG Supp RECTAL PRN (09:23)
[2024-01-20] MEDS ORDERED: Lanolin 100% Cream 7 GM Tube TOP PRN (09:23)
[2024-01-20] MEDS ORDERED: Misoprostol 200 MCG Tab RECTAL PRN (09:23)
[2024-01-20] MEDS ORDERED: Oxytocin 10 Units/1 ML SDV IM PRN (09:23)
[2024-01-20] MEDS ORDERED: oxyCODONE 5 MG Tab PO PRN (09:23)
[2024-01-20] MEDS ORDERED: Acetaminophen 500 MG Tab PO PRN (09:23)
[2024-01-20] MEDS ORDERED: diphenhydrAMINE 50 MG/ML SDV IVPUSH PRN (09:23)
[2024-01-20] MEDS ORDERED: Lactated Ringers 1,000 ML IV SCH (09:30)
[2024-01-20 09:37] LABS: PH,UMBILICAL ARTERIAL 7.24 (7.18-7.38); PH,UMBILICAL VENOUS 7.364 (7.25-7.45)
[2024-01-20] MEDS: Ketorolac 30 MG/ML SDV IVPUSH SCH ×2 (11:56→17:57)
[2024-01-20] MEDS: Acetaminophen 1,000 MG in Premix Bag 1 BAG IV SCH ×2 (12:01→17:56)
[2024-01-20] MEDS: Ondansetron 4 MG/2 ML SDV IVPUSH PRN (13:22)
[2024-01-20] MEDS: Cholecalciferol (Vitamin D3) 25 MCG Tab PO SCH (15:12)
[2024-01-20] MEDS: diphenhydrAMINE 50 MG/ML SDV IVPUSH PRN (16:23)
[2024-01-20] MEDS: Docusate Sodium 100 MG Cap PO SCH (20:52)
[2024-01-21 06:07] LABS: HEMATOCRIT 32.8 % (37.0-47.0)
[2024-01-21] MEDS: Prenatal Multivitamin with Calcium/Folic Acid/Iron Tab PO SCH (09:18)
[2024-01-21] MEDS: Acetaminophen/oxyCODONE 325-5 MG Tab PO PRN (13:19)
[2024-01-21] MEDS: Ibuprofen 800 MG Tab PO PRN (20:09)
== END 2024-01-22 14:45 | disposition home or self-care (01) | DRG 788 ==
LOC: MW.OB 04:59
PROVIDERS: ADMIT Obstetrics & Gynecology; ATTEND Obstetrics & Gynecology Obstetrics
PROC: 10D00Z1 Extraction of Products of Conception, Low, Open Approach (ICD-10-PCS; principal; 2024-01-20 08:00)
DX: O34.211 Maternal care for low transverse scar from previous cesarean delivery (principal); Z37.0 Single live birth; Z3A.39 39 weeks gestation of pregnancy; D64.9 Anemia, unspecified; O99.02 Anemia complicating childbirth
CPT/HCPCS: 36415; 59025; 82803; 85014; 85018; 85027; 86592; 86850; 86900; 86901; A9270-GY; J0131; J0690; J1100; J1200; J1790; J1885; J2250; J2274; J2371; J2405; J2590; J2704; J2795; J3010; J3490; J7120